=== PATIENT | female | born 2000 | race Hispanic/Latino ===

== ENCOUNTER 2019-03-17 15:36 | Outpatient (CLI) | payer OTHER ==
[2019-03-17] MEDS ORDERED: LACTATED RINGERS 500 ML IV ONE (15:57)
[2019-03-17 16:47] VITALS: BP 117/77
== END 2019-03-17 17:37 | disposition home or self-care (01) ==
LOC: TRG 15:36
PROVIDERS: ATTEND Obstetrics & Gynecology
DX: O47.03 False labor before 37 completed weeks of gestation, third trimester (principal); Z3A.34 34 weeks gestation of pregnancy
CPT/HCPCS: 59025

== ENCOUNTER 2019-03-22 14:34 | Outpatient (CLI) | payer OTHER ==
[2019-03-22 15:30] VITALS: BP 117/74
[2019-03-22 16:49] LABS: Bacteria,Urine 2+ /HPF (Negative); Bilirubin,Urine NEG (Negative); Blood,Urine MOD (Negative); Color,Urine Yellow (Yellow); Hyaline Casts,Urine 1 /LPF; Protein,Urine <15 mg/dL mg/dL (Negative); Urobilinogen,Urine < 2.0 mg/dL (<2.0)
--- NOTE | 2019-03-22 17:57 | Event Note ---
Date: 03/22/19 States she was lying on her sofa and suddenly felt a lot of fluid drain from her vagina. SSE: negative pool; cervix closed. Cat 1 fht's, no UC. Check CAS, if normal allow home
--- NOTE | 2019-03-22 18:12 | Ultrasound Report ---
PROCEDURE: US OB LIMITED TECHNIQUE: Transverse longitudinal sonograms obtained with betancourt scale sonography. HISTORY: Limited ultrasound. Leaking fluid. evaluate CAS and presentation COMPARISONS: None FINDINGS: Single viable intrauterine gestation with cephalic position. heart rate 136 BPM. CAS 17.5. Maxi mum vertical pocket 7.02 cm. IMPRESSION: Single viable intrauterine gestation with cephalic position. heart rate 136 BPM. CAS 17.5. Maximum vertical pocket 7.02 cm.. This document is electronically signed by Lambert Rasheed MD., March 22 2019 06:10:30 PM ET
== END 2019-03-22 18:30 | disposition home or self-care (01) ==
LOC: TRG 14:34 → LD 14:36 → TRG 15:03
PROVIDERS: ATTEND Obstetrics & Gynecology
DX: O47.03 False labor before 37 completed weeks of gestation, third trimester (principal); Z3A.35 35 weeks gestation of pregnancy
CPT/HCPCS: 59025; 76815; 81001; 87086

== ENCOUNTER 2019-04-05 23:29 | Observation (INO) | payer OTHER ==
[2019-04-06] MEDS ORDERED: NITRATEST PAPER MC ONE (00:25)
== END 2019-04-06 01:13 | disposition home or self-care (01) ==
LOC: INTOOBSV 23:29 → LD 23:29
PROVIDERS: ADMIT Obstetrics & Gynecology; ATTEND Obstetrics & Gynecology
DX: Z34.93 Encounter for supervision of normal pregnancy, unspecified, third trimester (principal); Z3A.39 39 weeks gestation of pregnancy
CPT/HCPCS: 59025; G0378; G0379

== ENCOUNTER 2019-04-09 18:46 | Outpatient (CLI) | payer OTHER ==
[2019-04-09] MEDS ORDERED: LACTATED RINGERS 1,000 ML ONE (20:50)
[2019-04-09] MEDS ORDERED: LACTATED RINGERS 1,000 ML IV ONE (21:15)
[2019-04-10 00:10] VITALS: BP 107/67
[2019-04-10] MEDS ORDERED: VISTARIL PO ONE (00:32)
== END 2019-04-10 00:46 | disposition home or self-care (01) ==
LOC: TRG 18:46
PROVIDERS: ATTEND Obstetrics & Gynecology
DX: O62.9 Abnormality of forces of labor, unspecified (principal); O26.893 Other specified pregnancy related conditions, third trimester; R10.2 Pelvic and perineal pain; M54.5 Low back pain; Z3A.38 38 weeks gestation of pregnancy
CPT/HCPCS: 59025; 96360; J7120; Q0177

== ENCOUNTER 2019-04-18 00:20 | Inpatient (IN) | payer OTHER ==
--- NOTE | 2019-04-18 05:35 | History and Physical Report ---
History of Present Illness Date of examination: 04/18/19 Date of admission: 04/18/19 Chief complaint: contractions History of present illness: Pt presented to triage c/o having contractions. Pt walked for two hours and progressed from 3.5cm to 5cm in 2hours. Pt admitted in active labor. 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 of genital herpes: no Rash, Viral, or Febrile illness since last LMP? no Varicella/Chicken Pox Status: Immunized Genetic History Congenital Heart Defect: Mom: no Dad: no Jayda Disease: Mom: no Dad: no Thalassemia Mom: no Dad: no Neural Tube Defect Mom: no Dad: no Down's Syndrome Mom: no Dad: no Adriano-Sachs Mom: no Dad: no Sickle Cell Disease/Trait Mom: no Dad: no Hemophilia Mom: no Dad: no Muscular Dystrophy Mom: no Dad: no Cystic Fibrosis Mom: no Dad: no [place] Chorea Mom: no Dad: no Mental Retardation Mom: no Dad: no Fragile X Mom: no Dad: no Other Genetic/Chromosomal Disorder Mom: no Dad: no Child w/other defect Mom: no Dad: no Enviromental Exposures Xray Exposure: no Medication, drug, or alcohol use since LMP: no Chemical/Other Exposure: no Exposure to Cat Liter: no Hx of Parvovirus (Fifth Disease): no 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 Medications (reviewed today): PNV () ZOFRAN () Current Allergies (reviewed today): No known allergies Past History Past Medical History: other (endometriosis) Past Surgical History: other (diagnostic scope for endometriosis with ablation of implants) Social history: no significant social history - Obstetrical History Expected Date of Delivery: 04/21/19 Actual Gestation: 39 Week(s) 4 Day(s) : 1 Medications and Allergies Allergies Allergy/AdvReac Type Severity Reaction Status Date / Time No Known Allergies Allergy Verified 03/17/19 15:55 Home Medications Medication Instructions Recorded Confirmed Last Taken Type No Known Home Medications [No 04/09/19 04/09/19 Unknown History Reported Home Medications] Review of Systems All systems: negative - Vital Signs Vital signs: Vital Signs Pulse BP 90 126/79 04/18/19 00:39 04/18/19 00:39 Temp Pulse Resp BP Pulse Ox 97.6 F 84 119/76 04/18/19 02:02 04/18/19 03:14 04/18/19 03:14 - Physical Exam Lungs: Positive: Normal air movement Abdomen: Positive: normal appearance, soft. Negative: distention, tenderness, guarding Genitourinary (Female): Positive: normal external genitalia, normal perenium. Negative: perineal/vulvar lesions Extremities: Positive: normal. Negative: tenderness, edema - Obstetrical FHR: category 1 Cervical Dilatation: 5.5 Cervical Effacement Percentage: 80 station: -1 Uterine Contraction Pattern: Regular Uterine Contraction Intensity: Moderate Results All other labs normal. Assessment and Plan - Patient Problems (1) 39 weeks gestation of Current Visit: Yes Status: Acute (2) Active labor at term Current Visit: Yes Status: Acute Plan to address problem: -admit -anticipate -GBS negative
[2019-04-18] MEDS ORDERED: SUBLIMAZE IV PRN (06:09)
[2019-04-18] MEDS ORDERED: XYLOCAINE 2% INFILTRATI ONE (06:09)
[2019-04-18] MEDS ORDERED: BRETHINE SUB-Q PRN (06:09)
[2019-04-18] MEDS ORDERED: MINERAL OIL PO PRN (06:09)
[2019-04-18] MEDS ORDERED: BRETHINE IVP PRN (06:09)
[2019-04-18] MEDS ORDERED: PITOCin/NS 30 UNIT/500ML 30 UNITS/500 ML BAG IV SCH ×2 (07:00)
[2019-04-18] MEDS ORDERED: PITOCin/NS 20 UNIT/1000ML DRIP 20 UNITS/1,000 ML BAG IV SCH ×2 (07:00→20:20)
[2019-04-18 08:55] LABS: Hematocrit 28.9 % (30.3-42.9); Hemoglobin 9.5 gm/dl (10.1-14.3); Mean Corpuscular HGB Conc 33 % (30-34); Mean Corpuscular Volume 79 fl (79-97); Platelet Count 215 K/mm3 (140-440); Red Blood Count 3.67 M/mm3 (3.65-5.03); Red Cell Distribution Width 14.6 % (13.2-15.2)
[2019-04-18] MEDS: LACTATED RINGERS 1,000 ML IV SCH ×3 (09:39→14:54)
--- NOTE | 2019-04-18 12:30 | Progress Note ---
Assessment and Plan Pt tolerating labor well Noted a chg in pressure with ctx ROM blood tinged fluid ISE/IUPC placed Pit @ 24mu Continue augmentation Re-eval as needed. Subjective - Subjective Date of service: 04/18/19 (c/o pressure) Patient reports: movement normal, contractions (pit @ 24mu) Objective - Vital Signs Vital Signs: Vital Signs - 12hr 04/18/19 04/18/19 04/18/19 00:39 02:02 03:14 Temperature 97.6 F Pulse Rate 90 84 Respiratory Rate Blood Pressure 126/79 119/76 04/18/19 04/18/19 04/18/19 08:30 09:41 11:17 Temperature 98.5 F Pulse Rate 79 85 Respiratory 12 Rate Blood Pressure 104/59 116/66 04/18/19 04/18/19 11:42 12:12 Temperature Pulse Rate 88 92 H Respiratory Rate Blood Pressure 108/77 120/79 - Exam Breasts: deferred Cardiovascular: Regular rate Lungs: Normal air movement Abdomen: Present: normal appearance, soft. Absent: distention, tenderness Uterus: Present: normal FHR: auscultation normal, category 1 Uterine Contraction Monitor Mode: Internal Cervical Dilatation: 5 (ISE/IUPC placed) Cervical Effacement Percentage: 90 (ROM blood tinged fluid) station: -1 Uterine Contraction Pattern: Regular Uterine Tone Measurement Phase: Resting Uterine Contraction Intensity: Moderate Extremities: normal Deep Tendon Reflex Grade: Normal +2 - Labs Labs: Abnormal Labs 04/18/19 08:30 WBC 12.0 H Hgb 9.5 L Hct 28.9 L MCH 26 L Laboratory Results - last 24 hr 04/18/19 04/18/19 08:30 08:30 WBC 12.0 H RBC 3.67 Hgb 9.5 L Hct 28.9 L MCV 79 MCH 26 L MCHC 33 RDW 14.6 Plt Count 215 Blood Type A POSITIVE Antibody Screen Negative
[2019-04-18] MEDS ORDERED: fentaNYL-BUPIV 2 MCG/ML-0.125% 200 MCG/100 ML BAG EPIDURAL ONE (12:53)
[2019-04-18] MEDS ORDERED: NARCAN 2 MG/2 ML IV PRN (12:55)
[2019-04-18] MEDS ORDERED: fentaNYL-BUPIV 2 MCG/ML-0.125% 200 MCG/100 ML BAG EPIDURAL SCH (13:00)
[2019-04-18] MEDS ORDERED: MARCAINE 0.25% INFILTRATI ONE (13:00)
--- NOTE | 2019-04-18 13:14 | Anesthesia Consultation ---
Anesthesia Consult and Med Hx Date of service: 04/18/19 - Airway Anesthetic Teeth Evaluation: Good ROM Head & Neck: Adequate Mental/Hyoid Distance: Adequate Mallampati Class: Class II Intubation Access Assessment: Good - Pulmonary Exam CTA: Yes - Cardiac Exam Cardiac Exam: RRR - Pre-Operative Health Status ASA Pre-Surgery Classification: ASA2 Proposed Anesthetic Plan: Epidural - Pulmonary Hx Asthma: No - Cardiovascular System Hx Hypertension: No - Central Nervous System Hx Seizures: No Hx Psychiatric Problems: No - Endocrine Hx Renal Disease: No Hx Hypothyroidism: No Hx Hyperthyroidism: No - Hematic Hx Anemia: No Hx Sickle Cell Disease: No - Other Systems Hx Alcohol Use: No
[2019-04-18] MEDS ORDERED: XYLOCAINE MPF 2% ONE (17:03)
[2019-04-18] MEDS ORDERED: TORADOL IV ONE (18:44)
--- NOTE | 2019-04-18 18:58 | Procedure Note ---
OB Delivery Note - Delivery Date of Delivery: 04/18/19 Paraprofessional Aide Teacher: MEGGAN REHMAN Estimated blood loss: 300cc - Vaginal Delivery presentation: vertex Delivery position: OA Intrapartum events: mult.variable deceleratio Delivery augmentation: pitocin Delivery monitor: internal FHT, internal uterine Route of delivery: Delivery placenta: spontaneous Delivery cord: 3 umbilical vessels Episiotomy: midline Delivery laceration: 2nd degree Delivery repair: vicryl Anesthesia: epidural Delivery comments: Pt called out c/o urge to push 2nd stage approx 1 hour live born male over 2nd degree episiotomy Baby to mom's abdomen skin to skin. Placenta and membrane delivered complete and intact, 3 vessel cord. Pitocin IVFs. Repair with 2-0 vicryl in usual fashion. 8/9, EBL 300, Wgt 7+ Mom and baby remain LDR stable. - Infant A at 1 minute: 8 at 5 minutes: 9 Gender: Male (wgt 7)
[2019-04-18] MEDS ORDERED: PHENERGAN PR PRN (20:20)
[2019-04-18] MEDS ORDERED: PHENERGAN PO PRN (20:20)
[2019-04-18] MEDS ORDERED: LANSINOH TP PRN (20:20)
[2019-04-18] MEDS ORDERED: DULCOLAX PR PRN (20:20)
[2019-04-18] MEDS ORDERED: BENADRYL PO PRN (20:20)
[2019-04-18] MEDS ORDERED: ZOFRAN IV PRN (20:20)
[2019-04-18] MEDS ORDERED: SODIUM CHLORIDE FLUSH SYRINGE 10 ML IV NR (20:20)
[2019-04-18] MEDS ORDERED: MILK OF MAGNESIA PO PRN (20:20)
[2019-04-18] MEDS ORDERED: TYLENOL PO PRN (20:20)
[2019-04-18] MEDS ORDERED: TUCKS PAD TP PRN (20:20)
[2019-04-18] MEDS: FEOSOL PO SCH (21:40)
[2019-04-18] MEDS: IBUPROFEN PO SCH (21:41)
[2019-04-19] MEDS: IBUPROFEN PO SCH ×3 (04:31→21:20)
[2019-04-19 06:08] LABS: Hematocrit 26.9 % (30.3-42.9); Hemoglobin 8.7 gm/dl (10.1-14.3)
[2019-04-19] MEDS: FEOSOL PO SCH ×2 (10:00→21:20)
--- NOTE | 2019-04-19 11:12 | Post Anesthesia Evaluation ---
- Post Anesthesia Evaluation Patient Participated: Yes Airway Patent: Yes Stable Respiratory Function: Yes Nausea/Vomiting: No Temp > 96.8F: Yes Pain Manageable: Yes Adequeate Hydration: Yes Anesthesia Complications: No Block Receding Appropriately: Yes Patient on Ventilator: No
--- NOTE | 2019-04-19 12:20 | Progress Note ---
Assessment and Plan - Patient Problems (1) 39 weeks gestation of Current Visit: Yes Status: Resolved (2) Active labor at term Current Visit: Yes Status: Resolved (3) Single live Current Visit: Yes Status: Acute Plan to address problem: -routine pp -d/c home if am if remains AFVSS Subjective - Subjective Date of service: 04/19/19 Principal diagnosis: PPD#1 s/p Interval history: Pt presented to triage c/o having contractions. Pt walked for two hours and progressed from 3.5cm to 5cm in 2hours. Pt admitted in active labor. 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 of genital herpes: no Rash, Viral, or Febrile illness since last LMP? no Varicella/Chicken Pox Status: Immunized Genetic History Congenital Heart Defect: Mom: no Dad: no Jayda Disease: Mom: no Dad: no Thalassemia Mom: no Dad: no Neural Tube Defect Mom: no Dad: no Down's Syndrome Mom: no Dad: no Adriano-Sachs Mom: no Dad: no Sickle Cell Disease/Trait Mom: no Dad: no Hemophilia Mom: no Dad: no Muscular Dystrophy Mom: no Dad: no Cystic Fibrosis Mom: no Dad: no [place] Chorea Mom: no Dad: no Mental Retardation Mom: no Dad: no Fragile X Mom: no Dad: no Other Genetic/Chromosomal Disorder Mom: no Dad: no Child w/other defect Mom: no Dad: no Enviromental Exposures Xray Exposure: no Medication, drug, or alcohol use since LMP: no Chemical/Other Exposure: no Exposure to Cat Liter: no Hx of Parvovirus (Fifth Disease): no 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 Medications (reviewed today): PNV () ZOFRAN () Current Allergies (reviewed today): No known allergies Patient reports: appetite normal, voiding normally, pain well controlled, ambula ting normally, no dizzy ambulation : doing well, nursing well Objective - Vital Signs Latest vital signs: Vital Signs Temp Pulse Resp BP BP Pulse Ox 04/19/19 08:21 97.9 F 77 16 103/58 98 04/19/19 04:00 98.8 F 72 18 104/78 04/19/19 00:00 98.7 F 76 18 112/73 04/18/19 19:39 85 124/65 04/18/19 19:38 87 122/64 04/18/19 19:23 86 123/67 04/18/19 19:08 92 H 121/68 04/18/19 18:53 100 H 133/82 04/18/19 17:50 133 H 128/80 04/18/19 17:32 127 H 100 04/18/19 17:27 104 H 100 04/18/19 17:22 92 H 100 04/18/19 17:20 85 121/71 04/18/19 17:17 101 H 100 04/18/19 17:12 96 H 99 04/18/19 17:07 116 H 100 04/18/19 17:02 95 H 100 04/18/19 16:57 81 100 04/18/19 16:52 95 H 100 04/18/19 16:50 86 121/72 04/18/19 16:47 83 100 04/18/19 16:42 96 H 100 04/18/19 16:37 98 H 100 04/18/19 16:32 109 H 100 04/18/19 16:27 141 H 100 04/18/19 16:22 109 H 100 04/18/19 16:20 100 H 130/87 04/18/19 16:17 95 H 100 04/18/19 16:13 104 H 89 04/18/19 16:12 114 H 96 04/18/19 16:07 94 H 100 04/18/19 16:02 96 H 100 04/18/19 15:57 115 H 99 04/18/19 15:52 85 100 04/18/19 15:50 85 119/75 04/18/19 15:47 85 100 04/18/19 15:42 84 99 04/18/19 15:37 86 100 04/18/19 15:32 94 H 99 04/18/19 15:27 82 100 04/18/19 15:23 85 90 04/18/19 15:22 81 100 04/18/19 15:20 80 119/78 04/18/19 15:17 86 100 04/18/19 15:12 94 H 100 04/18/19 15:09 86 92 04/18/19 15:07 96 H 100 04/18/19 15:02 83 100 04/18/19 14:57 96 H 100 04/18/19 14:52 81 96 04/18/19 14:51 78 120/71 04/18/19 14:47 79 99 04/18/19 14:42 90 100 04/18/19 14:37 85 99 04/18/19 14:32 82 100 04/18/19 14:28 84 91 04/18/19 14:27 92 H 98 04/18/19 14:22 79 100 04/18/19 14:20 91 H 112/71 04/18/19 14:17 91 H 100 04/18/19 14:13 81 90 04/18/19 14:12 81 100 04/18/19 14:07 80 100 04/18/19 14:02 97 H 100 04/18/19 13:57 99 H 100 04/18/19 13:52 88 96 04/18/19 13:47 98 H 100 04/18/19 13:42 87 100 04/18/19 13:37 85 100 04/18/19 13:32 115 H 99 04/18/19 13:27 85 100 04/18/19 13:22 100 H 99 04/18/19 13:20 88 134/67 04/18/19 13:17 96 H 100 04/18/19 13:16 100 H 129/80 04/18/19 13:12 87 99 04/18/19 13:11 86 126/77 04/18/19 13:07 83 100 04/18/19 13:05 83 122/67 04/18/19 13:02 91 H 100 04/18/19 12:42 88 138/74 Intake and Output 04/18/19 04/19/19 04/19/19 22:59 06:59 14:59 Intake Total 300 300 Output Total 1600 Balance 300 -1300 Intake: Intake, Free Water 300 300 Output: Urine 1600 Void 1600 Other: Total, Output Amount 1000 Estimated Blood Loss 300 - Exam Cardiovascular: Present: Normal S1, Normal S2 Lungs: Present: Clear to auscultation, Normal air movement Abdomen: Present: normal appearance, soft, normal bowel sounds. Absent: tenderness Uterus: Present: normal, firm, fundal height below umbilicus. Absent: tenderness Extremities: Present: normal. Absent: tenderness, edema - Labs Labs: Abnormal lab results 04/19/19 Range/Units 05:37 Hgb 8.7 L (10.1-14.3) gm/dl Hct 26.9 L (30.3-42.9) %
[2019-04-19] MEDS ORDERED: BOOSTRIX IM ONE (18:34)
[2019-04-20] MEDS: IBUPROFEN PO SCH (06:36)
--- NOTE | 2019-04-20 08:40 | Discharge Summary ---
Providers - Providers Date of Admission: 04/18/19 06:09 Date of discharge: 04/20/19 Attending physician: JAX SCHUSTER 04/18/19 20:20 Consult to Electromedical Service Engineer [CONS] Routine Reason For Exam: assistance with , SNS Primary care physician: JAX SCHUSTER Hospitalization Reason for admission: active labor, other Delivery: Procedure: other (vaginal delivery) Episiotomy: midline Laceration: none Other procedures: none complications: none Discharge diagnosis: IUP at term delivered Hospital course: Pt admitted in active. S/o vaginal delivery. PP course was not complicated. Pt desires d/c home today on PPD#2. Condition at discharge: Good Disposition: DC-01 TO HOME OR SELFCARE - Discharge Diagnoses (1) 39 weeks gestation of Status: Resolved (2) Active labor at term Status: Resolved (3) Single live Status: Acute Plan - Discharge Medications Prescriptions: Lidocain2.5%/Prilocai2.5% [Emla] 0 gm TP ONCE #1 tube - Provider Discharge Summary Additional instructions: [] Smoking cessation referral if applicable(refer to patient education folder for contact #) [] Refer to [facility] Booklet Call your doctor immediately for: * Fever > 100.5 * Heavy vaginal bleeding ( >1 pad per hour) * Severe persistent headache * Shortness of breath * Reddened, hot, painful area to leg or breast * Drainage or odor from incision. * Keep incision clean and dry at all times and follow doctor's instructions regarding bathing/showering - Follow up plan Follow up: JAX SCHUSTER MD [Primary Care Provider] - 7 Days Forms: [facility] Discharge Summary
[2019-04-20] MEDS: FEOSOL PO SCH (10:33)
[2019-04-20 12:34] VITALS: BP 110/71
== END 2019-04-20 15:20 | disposition home or self-care (01) | DRG 775 ==
LOC: TRG 00:20 → LD 06:09 → TRG 06:09 → OB 20:17
PROVIDERS: ADMIT Obstetrics & Gynecology; ATTEND Obstetrics & Gynecology
PROC: 10E0XZZ Delivery of Products of Conception, External Approach (ICD-10-PCS; principal; 2019-04-18)
PROC: 0KQM0ZZ Repair Perineum Muscle, Open Approach (ICD-10-PCS; 2019-04-18)
PROC: 10H07YZ Insertion of Other Device into Products of Conception, Via Natural or Artificial Opening (ICD-10-PCS; 2019-04-18)
PROC: 0W8NXZZ Division of Female Perineum, External Approach (ICD-10-PCS; 2019-04-18)
PROC: 3E0R3BZ Introduction of Anesthetic Agent into Spinal Canal, Percutaneous Approach (ICD-10-PCS; 2019-04-18)
PROC: 00HU33Z Insertion of Infusion Device into Spinal Canal, Percutaneous Approach (ICD-10-PCS; 2019-04-18)
DX: O76 Abnormality in fetal heart rate and rhythm complicating labor and delivery (principal); O70.1 Second degree perineal laceration during delivery; Z37.0 Single live birth; Z3A.39 39 weeks gestation of pregnancy
CPT/HCPCS: 36415; 85014; 85018; 85027; 86592; 86850; 86900; 86901; G0378; J1885; J2590; J3010; J7120